=== PATIENT | female | born 1960 | race Caucasian/White ===

== ENCOUNTER 2017-06-07 10:02 | Emergency (ER) | payer BC, MEDICAID ==
--- NOTE | 2017-06-07 10:10 | Emergency Department Record ---
History of Present Illness - General Chief Complaint: Ankle/Foot Injury Stated Complaint: ANKLE INJURY Time Seen by Provider: 06/07/17 10:03 Source: Patient, EMS Mode of Arrival: Ambulatory Limitations: No limitations - History of Present Illness Initial Comments: 57 yo female presents with about 2 weeks of right foot and ankle pain and swelling. She was walking on carpet and her toes turned awkwardly causing her to sprain her ankle and foot. She has had persistent pain, bruising. She lives on the third floor of an apartment. She is ambulatory but it is painful. No history of prior fracture of the right foot or ankle. PCP Leslie. Per EMS the patient met them at the door ambulating. MD Complaint: Ankle injury, Foot injury -: Week(s) (2) Injury: Ankle: Right, Foot: Right Type of Injury: Inversion Place: Home Severity: Moderate Improves With: Immobilization Worsens With: Movement, Other (Pt lives on third floor of appartment) Context: Walking Associated Symptoms: Swelling - Related Data Home Medications Medication Instructions Recorded Confirmed Last Taken Clonazepam 0.5 mg PO BID 06/07/17 06/07/17 06/07/17 Diclofenac Sodium 75 mg PO DAILY 06/07/17 06/07/17 Unknown Duloxetine HCl [Cymbalta] 60 mg PO DAILY 06/07/17 06/07/17 Unknown Gabapentin [Neurontin] 400 mg PO QID 06/07/17 06/07/17 Unknown Propranolol HCl 10 mg PO TID 06/07/17 06/07/17 06/07/17 Trazodone HCl 50 mg PO QHS 06/07/17 06/07/17 Unknown Previous Rx's Medication Instructions Recorded Oxycodone HCl/Acetaminophen 1 tab PO Q8H PRN #20 tab 06/07/17 [Percocet 5mg/325mg] Allergies Allergy/AdvReac Type Severity Reaction Status Date / Time acetaminophen [From Vicodin] AdvReac BEHAVIORAL Verified 06/07/17 10:10 CHANGES hydrocodone [From Vicodin] AdvReac BEHAVIORAL Verified 06/07/17 10:10 CHANGES Review of Systems Constitutional: Denies: Chills, Fever, Malaise, Weakness Eyes: Denies: Eye discharge, Eye pain, Photophobia ENT: Denies: Congestion, Throat pain Respiratory: Denies: Cough, Dyspnea, Hemoptysis, Stridor, Wheezes Cardiovascular: Denies: Chest pain, Palpitations, Syncope Endocrine: Denies: Fatigue Gastrointestinal: Denies: Abdominal pain, Diarrhea, Nausea, Vomiting Genitourinary: Denies: Dysuria Musculoskeletal: Reports: As per HPI, Arthralgia. Denies: Back pain Skin: Denies: Bruising, Change in color, Rash Neurological: Denies: Headache, Numbness, Weakness Psychiatric: Denies: Anxiety Hematological/Lymphatic: Denies: Anemia, Blood Clots, Easy bleeding, Easy bruising, Swollen glands Past Medical History - SOCIAL HISTORY Smoking Status: Current every day smoker - RESPIRATORY Hx Respiratory Disorders: No - CARDIOVASCULAR Hx Cardio Disorders: Yes Comment:: d/t pain. Pt c/o chest pressure with overeating - NEURO Hx Neuro Disorders: Yes Hx Headaches: Yes - GI Hx GI Disorders: No - Hx Genitourinary Disorders: No - ENDOCRINE Hx Endocrine Disorders: No - MUSCULOSKELETAL Hx Musculoskeletal Disorders: Yes Hx Fibromyalgia: Yes Comment:: Left hip/thigh pain/fasciitis - PSYCH Hx Psych Problems: Yes Hx Anxiety: Yes Hx Depression: Yes - HEMATOLOGY/ONCOLOGY Hx Hematology/Oncology Disorders: No Physical Exam - General General Appearance: Alert, Oriented x3, Cooperative, No acute distress Limitations: No limitations - Head Head exam: Atraumatic, Normocephalic, Normal inspection - Eye Eye exam: Normal appearance, PERRL. negative: Conjunctival injection, Scleral icterus - ENT ENT exam: Normal exam, Mucous membranes moist Ear exam: Normal external inspection Nasal Exam: Normal inspection - Neck Neck exam: Normal inspection - Respiratory Respiratory exam: Normal lung sounds bilaterally. negative: Respiratory distress - Cardiovascular Cardiovascular Exam: Regular rate, Normal rhythm, Normal heart sounds Peripheral Pulses: 2+: Radial (R) - Rectal Rectal exam: Deferred - exam: Deferred - Extremities Extremities exam: Full ROM, Joint swelling, Normal capillary refill, Pedal edema , Tenderness. negative: Normal inspection, Calf tenderness Image of Feet: 1 - mld diffuse foot and ankle swelling, intact DP and PT pulses, full ROM active and passive, intact skin, tender lateral foot and ankle, calf is non tender, no calf swelling, achilles is intact - Back Back exam: Reports: Normal inspection. Denies: CVA tenderness (R), CVA tenderness (L) - Neurological Neurological exam: Alert, Normal gait, Oriented X3, Reflexes normal - Psychiatric Psychiatric exam: Normal affect, Normal mood - Skin Skin exam: Other (bruising) Course - Reevaluation(s) Reevaluation #1: The XR was reviewed. She has a navicular fracture with subluxation was found I SW Dr Zuniga for follow up consultation. CT was recommended by the radiologist and Dr Zuniga. It will be ordered today for his review during the office visit He will see her in the clinic tomorrow. Consult was placed for the specialty clinic 06/07/17 10:46 CT demonstrates a comminuted navicular fx, cuneiform fx, 2nd MT fx 06/07/17 11:40 The pump attendant for the Specialty Clinic was present in the ED to provided appointment time The daughter is with the patient and will be able to assist at home 06/07/17 11:57 Disposition Disposition: Discharge Clinical Impression: Foot fracture, right Qualifiers: Encounter type: initial encounter Fracture type: closed Qualified Code(s): S92.901A - Unspecified fracture of right foot, initial encounter for closed fracture Disposition: Home, Self-Care Condition: (1) Good Instructions: Foot Fracture in Adults (ED) Additional Instructions: Follow up tomorrow with Dr Zuniga in the clinic at 3:30pm Use the boot and your walker at all times Minimize any weight bearing Keep the foot and ankle elevated Prescriptions: Oxycodone HCl/Acetaminophen [Percocet 5mg/325mg] 1 tab PO Q8H PRN #20 tab PRN Reason: Pain - General Referrals: CODY ZUNIGA [DOCTOR OF OSTEOPATH] - [facility] [Provider Group] Forms: Patient Portal Access Time of Disposition: 11:43 Quality - Quality Measures Quality Measures: N/A - Blood Pressure Screening Does Patient Have Any of the Following: No Blood Pressure Classification: Pre-Hypertensive BP Reading Systolic Measurement: 150 Diastolic Measurement: 87 Screening for High Blood Pressure: < Pre-Hypertensive BP, F/U Documented > [ [id number]] Pre-Hypertensive Follow-up Interventions: Referral to alternative/primary care provider.
[2017-06-07] MEDS ORDERED: HYDROCODONE/APAP 7.5/325MG TABLET PO ONE (11:52)
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
== END 2017-06-07 12:07 | disposition home or self-care (01) ==
LOC: ER 10:02
DX: S92.251A Displaced fracture of navicular [scaphoid] of right foot, initial encounter for closed fracture (principal); S92.224A Nondisplaced fracture of lateral cuneiform of right foot, initial encounter for closed fracture; W23.1XXA Caught, crushed, jammed, or pinched between stationary objects, initial encounter; Y92.009 Unspecified place in unspecified non-institutional (private) residence as the place of occurrence of the external cause
CPT/HCPCS: 99284

== ENCOUNTER 2017-12-18 19:37 | Observation (INO) | payer BC, MEDICAID ==
[2017-12-18] MEDS ORDERED: SODIUM CHLORIDE 0.9% 500 ML IV ONE (19:50)
--- NOTE | 2017-12-18 19:50 | Emergency Department Record ---
History of Present Illness - General Chief Complaint: Chest Pain Stated Complaint: CHEST PAIN Time Seen by Provider: 12/18/17 19:41 Source: Patient, EMS Mode of Arrival: Ambulatory Limitations: No limitations - History of Present Illness Initial Comments: 57 yo female presents by EMS for chest pain. The patient developed right sided chest pain about 5 pm. The pain is a dull ache. It does radiate to the right chest and RUQ. She was nauseated with the pain. She denies any symptoms earlier in the day. No history of CAD, PE, COPD, or DVT. She took her Klonopin and her Trazadone at 6pm and is now very sleepy. She states the pain does hurt with breathing. No leg pain or swelling. She has some sweating and nausea. PCP is Dr Jernigan. Although she answers questions correctly she is sleepy after her Klonopin and Trazadone. Her concentration is limited as she falls asleep. The patient is a smoker. Last surgery was over 6 months ago for foot fracture. She still has a gall bladder. MD Complaint: Chest pain -: Hour(s) (3) Onset: During rest Pain Location: Right chest Severity: Moderate Quality: Aching Consistency: Constant Improves With: Nothing Worsens With: Inspiration Anginal Symptoms: Nausea - Related Data Allergies Allergy/AdvReac Type Severity Reaction Status Date / Time No Known Drug Allergies Allergy Verified 12/18/17 19:40 Review of Systems Constitutional: Reports: Malaise. Denies: Chills, Fever Eyes: Denies: Eye discharge, Eye pain, Photophobia, Vision change ENT: Denies: Congestion, Throat pain Respiratory: Reports: Dyspnea. Denies: Cough, Hemoptysis Cardiovascular: Reports: As per HPI, Chest pain. Denies: Palpitations, Syncope Endocrine: Reports: Fatigue Gastrointestinal: Reports: Abdominal pain, Nausea. Denies: Constipation, Diarrhea, Vomiting Genitourinary: Denies: Dysuria, Urgency Musculoskeletal: Reports: Back pain. Denies: Arthralgia, Joint swelling, Myalgia Skin: Denies: Bruising, Change in color, Rash Neurological: Reports: Weakness. Denies: Headache, Numbness Psychiatric: Denies: Anxiety Hematological/Lymphatic: Denies: Blood Clots, Easy bleeding, Easy bruising, Swollen glands Past Medical History - SOCIAL HISTORY Smoking Status: Current every day smoker - RESPIRATORY Hx Respiratory Disorders: No - CARDIOVASCULAR Hx Cardio Disorders: Yes Comment:: d/t pain. Pt c/o chest pressure with overeating - NEURO Hx Neuro Disorders: Yes Hx Headaches: Yes - GI Hx GI Disorders: No - Hx Genitourinary Disorders: No - ENDOCRINE Hx Endocrine Disorders: No - MUSCULOSKELETAL Hx Musculoskeletal Disorders: Yes Hx Fibromyalgia: Yes Comment:: Left hip/thigh pain/fasciitis - PSYCH Hx Psych Problems: Yes Hx Anxiety: Yes Hx Depression: Yes - HEMATOLOGY/ONCOLOGY Hx Hematology/Oncology Disorders: No Physical Exam - General General Appearance: Oriented x3, Cooperative, Other (sleepy, fall asleep in between questions) Limitations: Altered mental status - Head Head exam: Atraumatic, Normocephalic, Normal inspection - Eye Eye exam: Normal appearance, PERRL. negative: Conjunctival injection, Scleral icterus - ENT ENT exam: Normal exam, Mucous membranes moist Ear exam: Normal external inspection Nasal Exam: Normal inspection Mouth exam: Normal external inspection - Neck Neck exam: Normal inspection - Respiratory Respiratory exam: Normal lung sounds bilaterally, Other (no respiratory distress ,). negative: Accessory muscle use, Chest wall tenderness, Decreased breath sounds, Prolonged expiratory, Rales, Respiratory distress, Rhonchi, Stridor, Wheezes - Cardiovascular Cardiovascular Exam: Regular rate, Normal rhythm, Normal heart sounds. negative : Diastolic murmur, Systolic murmur Peripheral Pulses: 2+: Radial (R), Radial (L) - GI/Abdominal GI/Abdominal exam: Soft, Tenderness, Other (Tenderness RUQ). negative: Distended, Guarding, Rebound, Rigid - Rectal Rectal exam: Deferred - exam: Deferred - Extremities Extremities exam: Normal inspection, Full ROM, Normal capillary refill. negative: Calf tenderness, Joint swelling, Pedal edema, Tenderness - Back Back exam: Reports: Normal inspection, Full ROM. Denies: CVA tenderness (R), CVA tenderness (L), Muscle spasm, Rash noted, Tenderness - Neurological Neurological exam: Alert, Oriented X3 - Psychiatric Psychiatric exam: Depressed, Flat affect - Skin Skin exam: Dry, Intact, Normal color, Warm Course - Reevaluation(s) Reevaluation #1: 12/18/17 19:45 EKG 1943 NSR rate 64, intervals Qt 487 axis normal, ST no acute changes 12/18/17 19:57 No changes from previous EKG 08/08/12 The patient is a limited historian after she took her night time sleep medications of Trazadone and Klonopin She easily falls asleep between questions Given her pain with deep breathing and low oxygen level CTA ordered of the chest 12/18/17 20:11 CBC was reviewed The WBC count is 17.7 with a Hgb of 14. 12/18/17 20:16 12/18/17 20:22 The CMP was reviewed No significant changes The troponin is negative 12/18/17 21:[address] scan demonstrated atelectasis only The patient was re examined. He pain is 100% gone at this time Given her elevated WBC count and atypical chest pain with some RUQ she will be admitted for serial enzymes and an abdominal US in the morning I JODEE Paul of the admission service for admission for serial enzymes and repeat CBC in the AM as well as US of the RUQ The patient is very comfortable without pain or complaints at this time. No fever, no pain, no shortness of breath, the RUQ tenderness is gone with palpation. Medical Decision Making - Lab Data Result diagrams: 12/18/17 19:55 12/18/17 19:55 Disposition Disposition: Admit Clinical Impression: RUQ abdominal pain Chest pain Qualifiers: Chest pain type: unspecified Qualified Code(s): R07.9 - Chest pain, unspecified Disposition: Still a Patient at [facility] Decision to Admit: Admit from ER Decision to Admit Date: 12/18/17 Decision to Admit Time: 21:45 Condition: (1) Good Time of Disposition: 21:45 Quality - Quality Measures Quality Measures: N/A - Blood Pressure Screening Does Patient Have Any of the Following: No Blood Pressure Classification: Normal BP Reading Systolic Measurement: 93 Diastolic Measurement: 40 Screening for High Blood Pressure: < Normal BP, F/U Not Required > [G8783]
[2017-12-18 20:01] LABS: BASO % 0.2 % (0-6); GRAN % 74.9 % (47-80); HEMATOCRIT 42.3 % (35.0-47.0); LYMPH % 13.4 % (16-45); MEAN CELL VOLUME 101.2 fl (81-97); MEAN CORPUSCULAR HEMOGLOBIN 33.5 pg (27-33); MEAN CORPUSCULAR HGB CONC 33.1 g/dl (32-36); MONO % 10.5 % (0-9); PLATELET COUNT 324 K/uL (130-400); RED BLOOD COUNT 4.18 M/uL (3.80-5.40); RED CELL DISTRIBUTION WIDTH 13.9 % (11.5-14.5); WHITE BLOOD COUNT W/O DIFF 17.7 K/uL (4.2-12.2)
[2017-12-18 20:12] LABS: PARTIAL THROMBOPLASTIN TIME 23.8 SECONDS (24.5-39.1); PROTHROMBIN TIME (PATIENT) 10.5 SECONDS (9.5-12.1)
[2017-12-18 20:15] LABS: ALB/GLOB RATIO 1.3 (1.1-1.8); ALBUMIN 3.6 g/dL (4.0-5.0); ALKALINE PHOSPHATASE 79 U/L (35-104); ALT/SGPT 26 U/L (<33); AST/SGOT 57 U/L (10.0-35.0); BLOOD UREA NITROGEN 8 mg/dL (6-20); CREATINE PHOSPHOKINASE 59 U/L (26-192); CREATININE 0.4 mg/dL (0.5-0.9); EST GLOMERULAR FILTRATION RATE > 60 mL/min; GLUCOSE,RANDOM 149 mg/dL (74-109); TOTAL PROTEIN 6.3 g/dL (6.6-8.7)
[2017-12-18 20:17] LABS: CKMB 1.7 ng/mL (<3.77)
[2017-12-18] MEDS ORDERED: ACETAMINOPHEN 1,000 MG/100 ML BTL IVPB ONE (22:06)
[2017-12-18] MEDS ORDERED: ONDANSETRON HCL IV 4 MG/2 ML VIAL IVP PRN (22:52)
[2017-12-18] MEDS ORDERED: 0.9 % SODIUM CHLORIDE 1000ML 1,000 ML IV PRN (22:52)
[2017-12-19] MEDS: ACETAMINOPHEN 1,000 MG/100 ML BTL IVPB SCH ×2 (04:56→09:16)
[2017-12-19 07:07] LABS: BASO % 0.3 % (0-6); EOS % 2.8 % (0-6); GRAN % 69.9 % (47-80); HEMATOCRIT 43.3 % (35.0-47.0); HEMOGLOBIN 13.5 gm/dl (11.6-16.0); LYMPH % 14.8 % (16-45); MEAN CELL VOLUME 103.1 fl (81-97); MEAN CORPUSCULAR HEMOGLOBIN 32.1 pg (27-33); MEAN CORPUSCULAR HGB CONC 31.2 g/dl (32-36); MEAN PLATELET VOLUME 10.8 fl (7.4-10.4); MONO % 12.2 % (0-9); PLATELET COUNT 293 K/uL (130-400); RED CELL DISTRIBUTION WIDTH 14.1 % (11.5-14.5); WHITE BLOOD COUNT W/O DIFF 7.8 K/uL (4.2-12.2)
[2017-12-19 07:28] LABS: ALB/GLOB RATIO 1.4 (1.1-1.8); ALBUMIN 3.3 g/dL (4.0-5.0); ALKALINE PHOSPHATASE 86 U/L (35-104); ALT/SGPT 36 U/L (<33); AST/SGOT 57 U/L (10.0-35.0); BLOOD UREA NITROGEN 7 mg/dL (6-20); CREATININE 0.4 mg/dL (0.5-0.9); EST GLOMERULAR FILTRATION RATE > 60 mL/min; GLUCOSE,RANDOM 87 mg/dL (74-109); TOTAL PROTEIN 5.7 g/dL (6.6-8.7)
[2017-12-19 07:29] LABS: AMYLASE 30 U/L (28-100); LIPASE 18 U/L (13-60)
--- NOTE | 2017-12-19 08:55 | History & Physical ---
History of Present Illness - Date of Service Date of Service for History & Physical: 12/19/17 - History of Present Illness Admitting Diagnosis: atypical chest pain, RUQ pain History of Present Illness: 57 yo female c/o atypical CP, RUQ pain with vomiting after eating. PMH anxiety, depression, chronic pain. Pt reports 9 years of progressing RUQ pain that starts as epigastric pressure and has begun to progress to RUQ pain after eating. Also reports vomiting after meals without nausea and feeling fine after vomiting. Pt had concerns this was correlating to ER- Given -500cc NS bolus, 1000mg IV tylenol -WBC 17.7, Hgb 14, Hct 42.3, Plt 324, NA 138, K 3.4, Cl 96, CO2 29, BUN 8, Creatinine 0.4, Bili .30, AST 57, ALT 26, Alk Phos 79, CK 59, CKMB 1.7, torp < 0.010. -C/O RUQ pain, pain with palpation 12/19/17 -Pt sitting up in bed, asking for food. US this AM (audio clip) states 1cm stone in CBD with no gallstones noted. Pt has been NPO through the night with IV tylenol and reports no pain at this time. No pain to palpation. A&Ox3, denies any CP or SOB. Dr. Crawford contacted and given report on audio clip for CBD stone. Instructions to transfer pt to [facility] for GI consult and ERCP today. Pt updated, [facility] has room ready 626 and transfer in progress. Travel Screening - Travel/Exposure Within Last 30 Days Have you traveled within the last 30 days?: No - Travel/Exposure Within Last Year Have you traveled outside the [place] in the last year?: No - Additonal Travel Details Have you been exposed to anyone with a communicable illness?: No - Travel Symptoms Symptom Screening: None Review of Systems Constitutional: Reports: Malaise. Denies: Chills, Fever Eyes: Denies: Eye discharge, Eye pain, Photophobia, Vision change ENT: Denies: Congestion, Throat pain Respiratory: Reports: Dyspnea. Denies: Cough, Hemoptysis Cardiovascular: Reports: As per HPI, Chest pain. Denies: Palpitations, Syncope Endocrine: Reports: Fatigue Gastrointestinal: Reports: Abdominal pain, Nausea. Denies: Constipation, Diarrhea, Vomiting Genitourinary: Denies: Dysuria, Urgency Musculoskeletal: Reports: Back pain. Denies: Arthralgia, Joint swelling, Myalgia Skin: Denies: Bruising, Change in color, Rash Neurological: Reports: Weakness. Denies: Headache, Numbness Psychiatric: Denies: Anxiety Hematological/Lymphatic: Denies: Blood Clots, Easy bleeding, Easy bruising, Swollen glands Past Medical History - SOCIAL HISTORY Smoking Status: Current every day smoker - RESPIRATORY Hx Respiratory Disorders: No - CARDIOVASCULAR Hx Cardio Disorders: Yes Comment:: d/t pain. Pt c/o chest pressure with overeating - NEURO Hx Neuro Disorders: Yes Hx Headaches: Yes - GI Hx GI Disorders: No - Hx Genitourinary Disorders: No - ENDOCRINE Hx Endocrine Disorders: No - MUSCULOSKELETAL Hx Musculoskeletal Disorders: Yes Hx Fibromyalgia: Yes Comment:: Left hip/thigh pain/fasciitis - PSYCH Hx Psych Problems: Yes Hx Anxiety: Yes Hx Depression: Yes - HEMATOLOGY/ONCOLOGY Hx Hematology/Oncology Disorders: No Family Medical History Any Significant Family History?: No H&P Meds/Allergies - Allergies Allergies: Allergies Allergy/AdvReac Type Severity Reaction Status Date / Time No Known Drug Allergies Allergy Verified 12/18/17 19:40 - Active Medications Active Medications: Current Medications Duloxetine HCl (Cymbalta) 60 mg PO BID TIERNEY Gabapentin (Neurontin) 300 mg PO QID TIERNEY Gabapentin (Neurontin) 100 mg PO QID TIERNEY Sodium Chloride () 1,000 mls @ 100 mls/hr IV .Q10H PRN PRN Reason: LARGE VOLUME IV Acetaminophen (Ofirmev) 1,000 mg in 100 mls @ 400 mls/hr IVPB Q6H [facility] Last Infusion: 12/19/17 05:11 Dose: Infused Ondansetron HCl (Zofran) 4 mg IVP Q8H PRN PRN Reason: NAUSEA Physical Exam - Vital Signs Vital Signs: Vital Signs - Last 24 Hrs Temp Pulse Pulse Resp BP BP Pulse Ox 12/19/17 05:00 98.2 F 87 18 130/72 93 L 12/19/17 01:30 98.0 F 85 18 137/77 94 L 12/18/17 23:10 78 12 93/40 91 L 12/18/17 22:52 97.6 F 84 16 129/78 93 L - General General Appearance: Oriented x3, Cooperative, Other (sleepy, fall asleep in between questions) Limitations: Altered mental status - Head Head exam: Atraumatic, Normocephalic, Normal inspection - Eye Eye exam: Normal appearance, PERRL. negative: Conjunctival injection, Scleral icterus - ENT ENT exam: Normal exam, Mucous membranes moist Ear exam: Normal external inspection Nasal Exam: Normal inspection Mouth exam: Normal external inspection Teeth exam: Dental caries - Neck Neck exam: Normal inspection - Respiratory Respiratory exam: Normal lung sounds bilaterally, Other (no respiratory distress ,). negative: Accessory muscle use, Chest wall tenderness, Decreased breath sounds, Prolonged expiratory, Rales, Respiratory distress, Rhonchi, Stridor, Wheezes - Cardiovascular Cardiovascular Exam: Regular rate, Normal rhythm, Normal heart sounds. negative : Diastolic murmur, Systolic murmur Peripheral Pulses: 2+: Radial (R), Radial (L), Dorsalis Pedis (R), Dorsalis Pedis (L) - GI/Abdominal GI/Abdominal exam: Soft, Normal bowel sounds, Tenderness, Other (Tenderness RUQ) . negative: Distended, Guarding, Rebound, Rigid - Rectal Rectal exam: Deferred - exam: Deferred - Extremities Extremities exam: Normal inspection, Full ROM, Normal capillary refill. negative: Calf tenderness, Joint swelling, Pedal edema, Tenderness - Back Back exam: Reports: Normal inspection, Full ROM. Denies: CVA tenderness (R), CVA tenderness (L), Muscle spasm, Rash noted, Tenderness - Neurological Neurological exam: Alert, Oriented X3 - Psychiatric Psychiatric exam: Depressed, Flat affect - Skin Skin exam: Dry, Intact, Normal color, Warm Results - Labs Result Diagrams: 12/19/17 06:37 12/19/17 06:37 Labs Last 24 Hours: Laboratory Results - last 24 hr 12/19/17 12/19/17 12/19/17 01:30 06:37 06:37 WBC 7.8 RBC 4.20 Hgb 13.5 Hct 43.3 MCV 103.1 H MCH 32.1 MCHC 31.2 L RDW 14.1 Plt Count 293 MPV 10.8 H Gran % 69.9 Lymphocytes % 14.8 L Monocytes % 12.2 H Eosinophils % 2.8 Basophils % 0.3 Sodium 145 Potassium 4.0 Chloride 106 Carbon Dioxide 29.0 Anion Gap 10.0 BUN 7 Creatinine 0.4 L Estimated GFR > 60 Random Glucose 87 Calcium 8.7 Total Bilirubin 0.40 AST 57 H ALT 36 H Alkaline Phosphatase 86 Troponin T < 0.010 Total Protein 5.7 L Albumin 3.3 L Globulin 2.4 Albumin/Globulin Ratio 1.4 Amylase Lipase 12/19/17 06:37 WBC RBC Hgb Hct MCV MCH MCHC RDW Plt Count MPV Gran % Lymphocytes % Monocytes % Eosinophils % Basophils % Sodium Potassium Chloride Carbon Dioxide Anion Gap BUN Creatinine Estimated GFR Random Glucose Calcium Total Bilirubin AST ALT Alkaline Phosphatase Troponin T Total Protein Albumin Globulin Albumin/Globulin Ratio Amylase 30 Lipase 18 - Imaging and Cardiology US - abdomen Status: Pending, Report reviewed (audio clip reviewed) Chest x-ray Status: Report reviewed VTE H&P Assessment - Risk for VTE Risk for VTE: Yes Risk Level: Low Risk Assessment Date: 12/19/17 Risk Assessment Time: 10:45 VTE Orders Placed or Will Be Placed: No VTE Reason for No Prophylaxis: Complication of Medical Care (potential procedure today) Plan - Detailed Diagnosis and Plan (1) Cholelithiasis Current Visit: Yes Status: Acute Qualifiers: Cholelithiasis location: bile duct Cholecystitis presence: with cholecystitis Cholecystitis acuity: acute Base Code: K80.20 - CALCULUS OF GALLBLADDER W/O CHOLECYSTITIS W/O OBSTRUCTION Priority: High Onset Date: ~12/18/17 Comment: 12/19/17 US positive for 1cm stone in CBD -Dr Crawford consulted -Per consult instructions, pt transfering to [facility] for potential ECRP today to remove stone -seeing GI at [facility] -continue NPO status (2) Chest pain Current Visit: Yes Status: Acute Qualifiers: Chest pain type: unspecified Qualified Code(s): R07.9 - Chest pain, unspecified Base Code: R07.9 - CHEST PAIN, UNSPECIFIED Priority: Low Comment: 12/19/17 -cardica enzymes negative -tele negative -pt denies any CP (3) RUQ abdominal pain Current Visit: Yes Status: Acute Base Code: R10.11 - RIGHT UPPER QUADRANT PAIN Priority: High Onset Date: ~12/18/17 Comment: 12/19/17 -stone in CBD -transfer to [facility] for ERCP with GI today (4) Full code status Current Visit: Yes Status: Acute Base Code: Z78.9 - OTHER SPECIFIED HEALTH STATUS Onset Date: ~12/18/17 Comment: 12/19/17 - full code status
[2017-12-19] MEDS ORDERED: DICLOFENAC 75 MG PO PRN (09:12)
[2017-12-19] MEDS ORDERED: PATIENT OWN MED: CLONAZEPAM 0.5 MG PO PRN (09:13)
[2017-12-19] MEDS ORDERED: PATIENT OWN MED: GABAPENTIN 400 MG PO SCH ×2 (09:15→12:00)
[2017-12-19] MEDS ORDERED: GABAPENTIN 100 MG CAPSULE PO SCH ×2 (10:00)
[2017-12-19] MEDS ORDERED: PATIENT OWN MED: DULOXETINE 60 MG PO SCH (10:00)
[2017-12-19] MEDS ORDERED: DULOXETINE HCL 30 MG CAPSULE.DR PO SCH (10:00)
[2017-12-19] MEDS ORDERED: GABAPENTIN 300 MG CAPSULE PO SCH (10:00)
--- NOTE | 2017-12-19 12:24 | CT ANGIOGRAM REPORT ---
EXAM: CT ANGIOGRAM OF THE CHEST HISTORY: CHEST PAIN. EVALUATE FOR PULMONARY EMBOLISM. TECHNIQUE: Helical CT angiogram of the chest was obtained after the administration of intravenous Omnipaque 300. Coronal and sagittal maximum intensity projection images are obtained. Comparison: None. FINDINGS: No filling defects in the pulmonary arteries. Coronal images show slightly decreased lung volumes, no filling defects in the pulmonary arteries. The aorta has a normal caliber, no dissection. Moderate atheromatous change of the descending thoracic aorta. The left ventricle appears mildly dilated. Mild coronary artery calcifications. No pericardial effusion. No pleural effusion. The lung parenchyma shows bibasilar dependent atelectasis. There is peribronchial thickening. Limited images of the upper abdomen show no significant abnormality. The bony structures shows mild degenerative changes of the spine. IMPRESSION: 1. NO EVIDENCE OF PULMONARY EMBOLISM. 2. MILDLY DILATED LEFT VENTRICLE. 3. BIBASILAR ATELECTASIS. JOB NUMBER: [id number] MTDD
--- NOTE | 2017-12-19 12:27 | Discharge Summary ---
Providers Discharge Summary Date: 12/19/17 (transfer to [facility]) Date of admission: 12/18/17 22:47 Expected Date of Discharge: 12/19/17 Attending physician: LARY SEYMOUR Consults: Consult Orders 12/19/17 09:25 Consult NOW Consulting Provider: Syed Crawford Physician Instructions: Reason For Exam: cholecystitis, cholelithiasis, 1cm stone CBD Physical Exam - Vital Signs Vital Signs: Vital Signs - Last 24 Hrs Temp Pulse Pulse Resp BP BP BP 12/19/17 12:19 99.1 F 79 18 161/79 12/19/17 09:00 99.0 F 75 16 154/73 12/19/17 05:00 98.2 F 87 18 130/72 12/19/17 01:30 98.0 F 85 18 137/77 12/18/17 23:10 78 12 93/40 12/18/17 22:52 97.6 F 84 16 129/78 Pulse Ox 12/19/17 12:19 92 L 12/19/17 09:00 94 L 12/19/17 05:00 93 L 12/19/17 01:30 94 L 12/18/17 23:10 91 L 12/18/17 22:52 93 L - General General Appearance: Oriented x3, Cooperative, Other (sleepy, fall asleep in between questions) Limitations: Altered mental status - Head Head exam: Atraumatic, Normocephalic, Normal inspection - Eye Eye exam: Normal appearance, PERRL. negative: Conjunctival injection, Scleral icterus - ENT ENT exam: Normal exam, Mucous membranes moist Ear exam: Normal external inspection Nasal Exam: Normal inspection Mouth exam: Normal external inspection Teeth exam: Dental caries - Neck Neck exam: Normal inspection - Respiratory Respiratory exam: Normal lung sounds bilaterally, Other (no respiratory distress ,). negative: Accessory muscle use, Chest wall tenderness, Decreased breath sounds, Prolonged expiratory, Rales, Respiratory distress, Rhonchi, Stridor, Wheezes - Cardiovascular Cardiovascular Exam: Regular rate, Normal rhythm, Normal heart sounds. negative : Diastolic murmur, Systolic murmur Peripheral Pulses: 2+: Radial (R), Radial (L), Dorsalis Pedis (R), Dorsalis Pedis (L) - GI/Abdominal GI/Abdominal exam: Soft, Normal bowel sounds, Tenderness, Other (Tenderness RUQ) . negative: Distended, Guarding, Rebound, Rigid - Rectal Rectal exam: Deferred - exam: Deferred - Extremities Extremities exam: Normal inspection, Full ROM, Normal capillary refill. negative: Calf tenderness, Joint swelling, Pedal edema, Tenderness - Back Back exam: Reports: Normal inspection, Full ROM. Denies: CVA tenderness (R), CVA tenderness (L), Muscle spasm, Rash noted, Tenderness - Neurological Neurological exam: Alert, Oriented X3 - Psychiatric Psychiatric exam: Depressed, Flat affect - Skin Skin exam: Dry, Intact, Normal color, Warm Hospitalization - Hospitalization Admission Diagnosis: atypical chest pain, RUQ pain - Problem List/Discharge Diagnosis (1) Cholelithiasis Current Visit: Yes Status: Acute Discharge Diagnosis: Cholelithiasis location: bile duct Cholecystitis presence: with cholecystitis Cholecystitis acuity: acute Base Code: K80.20 - CALCULUS OF GALLBLADDER W/O CHOLECYSTITIS W/O OBSTRUCTION Onset Date: ~12/18/17 Comment: 12/19/17 US positive for 1cm stone in CBD -Dr Crawford consulted -Per consult instructions, pt transfering to [facility] for potential ECRP today to remove stone -seeing GI at [facility] -continue NPO status (2) Chest pain Current Visit: Yes Status: Acute Discharge Diagnosis: Chest pain type: unspecified Qualified Code(s): R07.9 - Chest pain, unspecified Base Code: R07.9 - CHEST PAIN, UNSPECIFIED Comment: 12/19/17 -cardica enzymes negative -tele negative -pt denies any CP (3) RUQ abdominal pain Current Visit: Yes Status: Acute Base Code: R10.11 - RIGHT UPPER QUADRANT PAIN Onset Date: ~12/18/17 Comment: 12/19/17 -stone in CBD -transfer to [facility] for ERCP with GI today (4) Full code status Current Visit: Yes Status: Acute Base Code: Z78.9 - OTHER SPECIFIED HEALTH STATUS Onset Date: ~12/18/17 Comment: 12/19/17 - full code status - Hospitalization Course Procedures: Imaging and X-Rays 12/19/17 08:00 ABDOMEN, COMPLETE [US] Stat Abnormal Labs: Abnormal Lab Results 12/19/17 12/19/17 Range/Units 06:37 06:37 MCV 103.1 H (81-97) fl MCHC 31.2 L (32-36) g/dl MPV 10.8 H (7.4-10.4) fl Lymphocytes % 14.8 L (16-45) % Monocytes % 12.2 H (0-9) % Creatinine 0.4 L (0.5-0.9) mg/dL AST 57 H (10.0-35.0) U/L ALT 36 H (<33) U/L Total Protein 5.7 L (6.6-8.7) g/dL Albumin 3.3 L (4.0-5.0) g/dL Condition at Discharge: (1) Good Discharge Medications - Discharge Medications Home Medications: Ambulatory Orders Clonazepam 0.5 mg PO BID 06/07/17 [Last Taken 06/07/17] Diclofenac Sodium 75 mg PO BID 06/07/17 [Last Taken Unknown] Duloxetine HCl [Cymbalta] 60 mg PO BID 06/07/17 [Last Taken Unknown] Gabapentin [Neurontin] 400 mg PO QID 06/07/17 [Last Taken Unknown] Trazodone HCl 50 mg PO QHS 06/07/17 [Last Taken Unknown] Discharge Plan - Discharge Instructions Activity at Discharge: Other (return to activity as ordered by discharging providers at [facility]) Additional Instructions: Transfered to [facility] per Dr Crawford instructions for potential ERCP today. Pt to remain NPO, transfered via EMS. Hold all home meds until cleared by admitting provider at [facility]. Quality Measures - Quality Measures Quality Measures: Documentation of Current Medications in Medical Record, Screening for High Blood Pressure and F/U Documented - Current Medications Quality Measure: Measure #130: Documentation of Current Medications Documentation of Current Medications: <Current Medications Documented/Reviewed> [G8427] - Blood Pressure Screening Quality Measure: Screening for High Blood Pressure and Follow-Up Documented Does Patient Have Any of the Following: No Blood Pressure Classification: Normal BP Reading Systolic Measurement: 93 Diastolic Measurement: 40 Screening for High Blood Pressure: < Normal BP, F/U Not Required > [G8783] - Elder Abuse Suspicion Index EASI Reference Information: Antoinette EDWARD, Snehal C, Genie D, Lindsay Luo.Development and validation of a tool to assist physicians identification of elder abuse: The Elder Abuse Suspicion Index (EASI ). Journal of Elder Abuse and Neglect, 2008; 20 (3): 276-300.
--- NOTE | 2017-12-19 12:34 | ULTRASOUND REPORT ---
EXAM: EMERGENCY COMPLETE ABDOMEN ULTRASOUND HISTORY: RIGHT UPPER QUADRANT PAIN AND MID EPIGASTRIC PAIN AFTER EATING TOO MUCH, THIS HAS BEEN GOING ON FOR TWO YEARS. TECHNIQUE: Complete real-time ultrasound examination of the abdomen was obtained. Comparison: No prior abdomen ultrasound with which to compare. FINDINGS: The pancreas itself appears negative with no definite pancreatic mass identified. No dilatation of the pancreatic duct seen. There is dilatation of the common duct in the head of the pancreas as described below. The abdominal aorta appears negative with no aneurysm seen. The IVC was negative as seen. The liver appears essentially negative with no hepatic mass identified and no obvious intrahepatic biliary dilatation seen. The right kidney measures 11.5 cm in length. Minimal prominence of the renal pelvis, but no definite caliectasis seen. The gallbladder has a diffusely thick walled appearance. Positive sonographic Robertson's sign as well. No obvious gallstones seen within the gallbladder and the wall thickening is nonspecific. This can be seen in acute or chronic cholecystitis as well as other conditions such as hypoproteinemia and ascites. No obvious ascites, however. The common duct is seen and is mildly dilated measuring up to about 1 cm in diameter. In addition , there is an echogenic focus with shadowing seen in the common duct measuring about 1 cm in size as well consistent with choledocholithiasis. Distal to this apparent common duct calculus the common duct still appears dilated extending into the head of the pancreas and an even more distal second common duct calculus could not be excluded although is not clearly demonstrated. The left kidney measures 10.5 cm in length with no hydronephrosis evident. The spleen appears negative. IMPRESSION: 1. DILATATION OF THE COMMON DUCT WITH CHOLEDOCHOLITHIASIS EVIDENT DESCRIBED ABOVE. 2. THE GALLBLADDER WALL IS DIFFUSELY THICKENED WITH A POSITIVE SONOGRAPHIC ROBERTSON'S SIGN. NO ACTUAL GALLSTONES WITHIN THE GALLBLADDER ITSELF IDENTIFIED, BUT CLINICAL CORRELATION TO THE POSSIBILITY OF CHOLECYSTITIS SUGGESTED. 3. THE REMAINDER OF THE ABDOMEN ULTRASOUND APPEARS ESSENTIALLY NEGATIVE. NO DEFINITE HYDRONEPHROSIS IDENTIFIED. JOB NUMBER: [id number] [facility]
[2017-12-19] MEDS ORDERED: PATIENT OWN MED: TRAZODONE 50 MG PO SCH (22:00)
== END 2017-12-19 12:30 | disposition short-term general hospital (02) ==
LOC: ER 19:37 → MEDSURG 22:47
PROVIDERS: ADMIT Internal Medicine; ATTEND Internal Medicine
DX: K50.80 Crohn's disease of both small and large intestine without complications (principal); R10.11 Right upper quadrant pain; M79.7 Fibromyalgia; F31.9 Bipolar disorder, unspecified; F17.210 Nicotine dependence, cigarettes, uncomplicated
CPT/HCPCS: 99285 ×2; 96365; 82550; 82150; 83690; 85025 ×2; 85730; 85610; 82553; 80053 ×2; 84484 ×2; 83880; 76700; 71275; 94640; 93005; 93010; G0378 ×2; Q9967; 99220